=== PATIENT | female | born 1990 | race Caucasian/White ===

== ENCOUNTER 2018-06-23 09:40 | Outpatient (CLI) | payer OTHER ==
[2018-06-23 10:08] LABS: MEAN CORPUSCULAR HEMOGLOBIN 29.8 pg (28.0-34.0)
[2018-06-23 10:09] LABS: BASOPHILS % 0.4 (0.0-1.5); EOSINOPHILS % 4.4 % (0.0-6.8); MONOCYTES % 7.1 % (0.0-11.0); NEUTROPHILS # 4.1 # k/uL (1.4-7.7)
[2018-06-23 10:34] LABS: eGFR (Non-African) > 60
== END 2018-06-23 09:42 ==
LOC: LAB 09:40
PROVIDERS: ATTEND Physician Assistant
DX: N91.2 Amenorrhea, unspecified (principal); R63.5 Abnormal weight gain
CPT/HCPCS: 36415; 80053; 84439; 84443; 84481; 85025